=== PATIENT | female | born 1930 | race Caucasian/White ===

== ENCOUNTER → 2017-01-29 | Outpatient (CLI) | payer MEDICARE, OTHER | END | disposition home or self-care (01) | LOC: GMAJ 15:10 | PROVIDERS: ATTEND Family Medicine | DX: R10.84 Generalized abdominal pain (principal) ==

== ENCOUNTER → 2017-04-12 | Outpatient (CLI) | payer MEDICARE, OTHER | END | disposition home or self-care (01) | LOC: LAB.O 12:06 | PROVIDERS: ATTEND Internal Medicine Rheumatology | DX: Z79.899 Other long term (current) drug therapy (principal); M81.0 Age-related osteoporosis without current pathological fracture; E56.8 Deficiency of other vitamins ==

== ENCOUNTER → 2017-06-05 | Outpatient (CLI) | payer MEDICARE, OTHER | END | disposition home or self-care (01) | LOC: GMAJ 10:44 | PROVIDERS: ATTEND Family Medicine | DX: Z79.899 Other long term (current) drug therapy (principal) ==

== ENCOUNTER → 2017-08-30 | Outpatient (CLI) | payer MEDICARE, OTHER ==
--- NOTE | 2017-08-31 10:18 | CT ---
Study: CT abdomen and pelvis. Indication: PERIUMBILICAL PAIN Technique: CT of the abdomen and pelvis obtained without intravenous contrast. This exam was performed according to our departmental dose-optimization program, which includes automated exposure control, adjustment of the mA and/or kV according to patient size and/or use of iterative reconstruction technique. Comparison: None. Findings: Emphysema. Coronary artery and abdominal aortic atherosclerosis. Liver, gallbladder, pancreas, spleen, adrenal glands, left kidney, bladder, uterus, and bilateral adnexa demonstrate normal unenhanced CT appearance. 13 mm hyperdense exophytic lesion lateral margin of the right kidney. Colonic diverticulosis without diverticulitis. Stomach, small bowel, and appendix unremarkable. No free fluid. No free air. No pathologically enlarged lymphadenopathy. Degenerative changes of the spine noted. Tiny fat-containing umbilical hernia without herniated bowel Impression: Tiny fat-containing periumbilical hernia without herniated bowel. Colonic diverticulosis without diverticulitis. Exophytic hyperdense right renal lesion likely a proteinaceous cyst. Renal sonogram can confirm. Atherosclerosis. Additional findings as above. Electronically signed by: Gabriele Torre MD 08/31/2017 10:17 AM CDT
== END | disposition home or self-care (01) ==
LOC: CT 09:27
PROVIDERS: ATTEND Family Medicine
DX: K42.9 Umbilical hernia without obstruction or gangrene (principal); K57.30 Diverticulosis of large intestine without perforation or abscess without bleeding

== ENCOUNTER → 2018-02-22 | Outpatient (CLI) | payer OTHER | LOC: GMAJ 13:48 | PROVIDERS: ATTEND Family Medicine | DX: N30.00 Acute cystitis without hematuria (principal); R30.0 Dysuria ==

== ENCOUNTER → 2018-08-05 | Outpatient (CLI) | payer OTHER | LOC: GMAJ 16:45 | PROVIDERS: ATTEND Family Medicine | DX: M15.0 Primary generalized (osteo)arthritis (principal); Z79.899 Other long term (current) drug therapy ==

== ENCOUNTER 2018-12-30 16:48 | Inpatient (IN) | payer OTHER ==
--- NOTE | 2018-12-30 16:50 | HP ---
SUPERVISING PHYSICIAN: Wilmar Haile M.D. CHIEF COMPLAINT: Fever. HISTORY OF PRESENT ILLNESS: Ms. Duncan is an 88 year-old female patient that presented to the clinic today complaining of fever up to a maximum of 100.6 at home. She was also noting that she was having some abdominal pain that was more on the right lower quadrant than left lower quadrant with some associated chills, vomiting times 1 and generalized leg and hip pain. In the clinic today, she was found to be mildly tender on exam to both the lower right and left quadrants. She was worked up in the clinic with concerns possibly that she was developing an Influenza-like illness from upper respiratory infection, including Influenza, however, a full BioFire and respiratory panel showed this to be negative. Urinalysis showed just some mild microhematuria. Her white count was showing a mild leukocytosis at 11,900 without a left shift. While having chest x-ray completed when she was getting off the x-ray table, she had a near syncopal episode and actually became mildly diaphoretic and nauseous with emesis. Vital signs in the clinic prior to that showed that she was normotensive with blood pressure 147/77, heart rate 90. Dr. Haile requested the patient be placed in observation tonight with concerns for possible dehydration given that she has a history of diverticulosis, that she may be having early signs of acute diverticulitis. On interview on admission, the patient noted that she had been not feeling well since this past weekend and actually was constipation over the weekend, but this morning had relief after she took a stool softener and an enema. She notes that she does have issues with constipation often having to utilize laxative and enemas to have successful bowel movements. The patient is now going to be placed in observation with concerns for dehydration and to further address the previous near syncopal episode. She was placed in observation in stable condition. PAST MEDICAL HISTORY: 1. Seasonal allergies. 2. Osteoarthritis. 3. Mild carotid artery stenosis diagnosed in 2003. 4. History of diverticulosis. 5. History of urinary incontinence secondary to urgency. 6. Chronic idiopathic constipation. PAST SURGICAL HISTORY: 1. Benign breast biopsy times 4. 2. Dilatation and curettage times 2. 3. Tonsillectomy and adenoidectomy. 4. Heart catheter that was normal in 2015. 5. Colonoscopy in 2010 per medical records showing to be with no abnormal findings. HOME MEDICATIONS: 1. Metamucil daily. 2. Calcium supplement 500 mg daily. 3. Vitamin D3 400 units daily. 4. Amitiza 24 mcg b.i.d. 5. Centrum Silver 1 daily. 6. Dhara allergy. 7. Aspirin enteric coated 81 mg daily. 8. Meloxicam 7.5 mg daily. 9. Lipitor 10 mg daily. 10. Tylenol 500 mg at bedtime. ALLERGIES: NO KNOWN DRUG ALLERGIES. FAMILY HISTORY: Father at age 78 secondary to prostate cancer. Mother at age 90 due to stroke. She has 1 brother that is . He had a history of bone cancer. She has 4 children, all adopted. SOCIAL HISTORY: The patient is a retired manager of school, elementary and high school, and currently is a rancher/woo. She has been since 2013. She has never smoked, never used tobacco. She lives in [place], [place]. REVIEW OF SYSTEMS: CONSTITUTIONAL: Subjective fever of 100.6. Negative for fatigue but positive for general malaise. HEENT: Negative for any ear pain, sore throat, nasal congestion, headaches. RESPIRATORY: Positive for recent cough. Denies any dyspnea or pleuritic chest pain. CARDIOVASCULAR: Negative for chest pains, palpitations, peripheral edema. Positive for near syncopal episode. GASTROINTESTINAL: As noted in History of Present Illness. Positive for right lower and left lower quadrant pain, constipation, mild abdominal pains. Denies any diarrhea, melena or other bowel changes. Does have history of diverticulosis. Denies any blood per rectum. MUSCULOSKELETAL: Positive for general arthralgias. No joint swelling. INTEGUMENT: Negative for any lesions, rash, moles or unexplained changes. NEUROLOGIC: Negative for ataxia, seizures, paresthesias, vision changes. Positive for questionable near syncopal episode. HEMATOLOGIC: Denies any unexplained bleeding, easy bruising. PHYSICAL EXAMINATION: VITAL SIGNS: Temperature 97.6, pulse 77, blood pressure 165/76, respirations 16, satting 99% on room air at rest. Admission weight 52.4 kg. GENERAL: On admission to the hospital, the patient appears to be in no acute distress, comfortable, mildly dehydrated but well nourished. HEENT: Tympanic membranes are partially obscured by cerumen. Oropharynx was pink with dry mucosal membranes. No lesions. NECK: Supple, non-tender. Full range of motion. CHEST: Lungs are clear to auscultation without any rhonchi, wheezing or rales. CARDIOVASCULAR: Regular rate and rhythm without appreciable murmurs, gallops, or rubs. ABDOMEN: Mildly tender on palpation in the left lower quadrant and right lower quadrant. No rebound tenderness. No guarding. No point tenderness. No peritoneal signs. Bowel sounds were active. EXTREMITIES: No clubbing, cyanosis or edema. NEUROLOGIC: She is alert and oriented times three. Cranial nerves II-XII are grossly intact. Facial features were symmetrical. Extraocular movements are within normal limits. There is no notable nystagmus. LYMPHATICS: Bilateral anterior cervical lymphadenopathy. LABORATORY: CBC in the clinic showed white count 11,900 without a left shift. Hemoglobin 14.3, hematocrit 43.4. Platelet count 191,000. Differential showed to be without a left shift. CMP was pending. Urinalysis showed clear urine, just trace lysed blood. Microscopic showed 1 to 3 red cells, otherwise within normal limits. Influenza testing in the clinic was negative for A and B by [facility]. Magnesium is pending. RADIOLOGY: Lumbar spine pending radiology review. Chest x-ray 2 view pending. Abdominal series pending. ASSESSMENT: 1. Near syncopal episode probably due to some dehydration. 2. Fever subjective, uncertain etiology, with negative Influenza testing with the patient having a history of diverticulosis. 3. Abdominal pain left lower quadrant with a past history of diverticulosis pending further workup. 4. Lumbar back pain with history of osteoarthritis. 5. Idiopathic constipation on Amitiza. PLAN: The patient will be placed in observation with concerns for dehydration resulting in a near syncopal episode. Given that she has had some left lower quadrant pain, will go ahead and do an abdominal series plain films and plan to reevaluate in the morning. If her symptoms persist, certainly will do a CT of the abdomen with contrast. Will await her full laboratory studies. Will go ahead and start her on some IV fluids initially with lactated ringers and continue maintenance fluids based off lab results. Will go ahead and do some tilt vital signs. Will anticipate her length of stay to be 1 to 2 days, possibly discharging tomorrow. If her abdominal pain persists or worsens, certainly will need to followup with a CT and based off clinical presentation with concerns for possible developing diverticulitis with a history of diverticulosis. Will review her medications and resume those as appropriate once updated and verified. She will be on DVT prophylaxis as per protocol. Until she can transition to outpatient management will continue to monitor and treat as needed. [facility][id number] [facility]
[2018-12-30] MEDS ORDERED: SODIUM CHLORIDE 0.9% (FLUSH) 10 ML SYG IV PRN (17:01)
[2018-12-30] MEDS ORDERED: LACTATED RINGERS 1,000 ML IVS PRN (17:01)
[2018-12-30] MEDS ORDERED: ACETAMINOPHEN 325 MG TAB PO PRN (17:01)
[2018-12-30] MEDS ORDERED: ONDANSETRON INJ 4 MG/2 ML VIAL IV PRN (17:01)
[2018-12-30] MEDS ORDERED: LACTATED RINGERS 1,000 ML ONE (17:30)
[2018-12-30] MEDS ORDERED: IV SET AND CAP CHANGE INJ INJ SCH (17:30)
[2018-12-30] MEDS ORDERED: MAGNESIUM SULFATE PREMIX 2GM 2 GM in PREMIX BAG 1 BAG IVPB ONE (20:17)
[2018-12-30] MEDS ORDERED: MAGNESIUM SULFATE PREMIX 2GM 50 ML IVPB ONE (21:12)
[2018-12-30] MEDS: ACETAMINOPHEN 500 MG TAB PO SCH (21:25)
[2018-12-30] MEDS ORDERED: CHLORPHENIRAMINE W/HYDROCODONE 5 ML UD PO PRN (22:48)
[2018-12-31] MEDS: KCL 40 MEQ/D5 1/2NS 1,000 ML IVS PRN ×2 (01:29→13:57)
[2018-12-31] MEDS: LUBIPROSTONE 24 MCG CAP PO SCH ×2 (06:46→17:34)
[2018-12-31] MEDS: MELOXICAM 7.5 MG TAB PO SCH (08:45)
[2018-12-31] MEDS: ASPIRIN (ENTERIC COATED) 81 MG TAB PO SCH (08:45)
[2018-12-31] MEDS ORDERED: PSYLLIUM 48.57% PO SCH (09:00)
[2018-12-31] MEDS ORDERED: CALCIUM 500 MG PO SCH (09:00)
[2018-12-31] MEDS ORDERED: NON-FORMULARY MEDICATION 1 EA MIS (Fexofenadine Hcl [Allegra Allergy] 180 MG) PO SCH (09:00)
--- NOTE | 2018-12-31 12:26 | CT ---
EXAM DESCRIPTION: Abdomen/Pelvis w/Contrast CLINICAL HISTORY: 88 years Female, LLQ pain with HX of Diverticulosis COMPARISON: CT abdomen and pelvis with contrast dated 08/30/2017. TECHNIQUE: Contiguous 3 mm axial images were obtained from the lung bases to the level of the proximal femora after the administration of intravenous and oral contrast. Sagittal and coronal reconstructions were reviewed. FINDINGS: THORAX: The imaged lower thorax demonstrates no gross abnormality. LIVER: The liver demonstrates normal size and density with no focal masses. GALLBLADDER: Grossly unremarkable. PANCREAS: Appears normal with no cystic or solid lesions. SPLEEN: Normal ADRENAL GLANDS: Normal with no nodules or masses. KIDNEYS: Both kidneys enhance symmetrically with no hydronephrosis or nephrolithiasis or perinephric fluid collections. 1.4 x 1 cm enhancing mass is noted in the upper pole of the right kidney. Inflammatory stranding is noted around the left kidney which could be secondary to pyelonephritis. STOMACH: The stomach is well-distended with no gross abnormality. SMALL BOWEL: The small bowel loops demonstrate variable degrees of distention with no abnormal dilatation or other signs to suggest bowel obstruction. LARGE BOWEL: Mild constipation. Multiple diverticula are noted throughout the colon with no acute inflammation. The appendix is not definitely visualized. No evidence of free intraperitoneal air or fluid. RETROPERITONEUM: The abdominal aorta is nonaneurysmal with moderate atherosclerosis. The inferior vena cava is normal in size and caliber. No abnormally enlarged retroperitoneal lymph nodes are identified. URINARY BLADDER:The urinary bladder is well-distended with no gross abnormality. The uterus and ovaries appear normal. ADDITIONAL FINDINGS: None. BONES: Mild degenerative changes are identified in the visualized bones.No evidence of osteophytic or osteoblastic lesions. IMPRESSION: 1. 1.4 x 1 cm enhancing mass is noted in the upper pole of the right kidney. This appears unchanged compared to prior CT dated 08/30/2017. 2. Questionable pyelonephritis of the left kidney. Clinical correlation with urinalysis is recommended. 3. Colonic diverticulosis with no acute inflammation. This exam was performed according to our departmental dose-optimization program, which includes automated exposure control, adjustment of the mA and/or kV according to patient size and/or use of iterative reconstruction technique. Electronically signed by: Debbie Flowers MD 12/31/2018 12:22 PM DIRECTOR OPERATING
[2018-12-31] MEDS ORDERED: MORPHINE SULFATE INJ 10 MG/ML VIAL IV PRN (13:36)
[2018-12-31] MEDS ORDERED: SODIUM CHL 0.9% 50ML MIN-BAG+ 50 ML IVPB ONE (13:53)
[2018-12-31] MEDS ORDERED: cefTRIAXone SODIUM 1 GM VIAL ONE (13:54)
[2018-12-31] MEDS: LORATADINE 10 MG TAB PO SCH (13:54)
[2018-12-31] MEDS: cefTRIAXone SODIUM 1 GM in SODIUM CHL 0.9% 50ML MIN-BAG+ 50 ML IVPB SCH (13:57)
[2018-12-31] MEDS: CALCIUM CARBONATE-VITAMIN D 500 MG TAB PO SCH (13:57)
--- NOTE | 2018-12-31 20:30 | PN ---
DATE: 12/31/18 SUPERVISING PHYSICIAN: Wilmar Haile M.D. SUBJECTIVE: The patient continues to have left sided lower quadrant pain and some loose stools. She has been afebrile and continues to have general malaise with some nausea with meals. She feels like she is having a flare-up of her diverticulosis. OBJECTIVE: VITAL SIGNS: Temperature 98.6, pulse 72, blood pressure 146/78, respirations 20, satting 98% on room air. CHEST: Lungs were clear to auscultation. HEART: Regular rate and rhythm. ABDOMEN: Soft with some continued tenderness to the left lower quadrant and pain described as radiating up into her left flank. No rebound tenderness. No peritoneal signs. EXTREMITIES: Without any edema. NEUROLOGIC: She is alert and oriented times three. LABORATORY: CMP shows normal electrolytes, BUN 17, creatinine 0.93, calcium 7.5, magnesium is normalized at 2.2 after replacement. Liver functions showing to be within normal limits. MICROBIOLOGY: Blood cultures are negative currently. RADIOLOGY: Abdominal/pelvis CT with contrast per radiology interpretation showed a 1.4 cm x 1 cm enhancing mass noted in the upper pole of the right kidney, appears to be unchanged compared to prior CT dated August 2017. There was notable questionable pyelonephritis of the left kidney and chronic diverticulosis with no acute inflammation. ASSESSMENT: 1. Left sided pyelonephritis as noted on CT scan studies. 2. Subjective fever likely due to ongoing pyelonephritis. 3. Abdominal pain left lower quadrant with no signs of diverticulitis with CT findings consistent with left sided pyelonephritis requiring IV pain management and parenteral antibiotics. 4. Lumbar back pain with history of osteoarthritis. 5. Idiopathic constipation on Amitiza. PLAN: Given the findings on CT and the patient's continued pain levels, will go ahead and start her on some antibiotics including Rocephin once blood cultures and a repeat urinalysis and urine culture is completed. She is on IV morphine for pain control. She continues on IV fluids. Will continue to monitor the patient's clinical progression and monitor culture results, and target antibiotic therapy as needed. Hopefully be able to discharge the patient within the next 48 hours, possibly later tomorrow. Until then, continue to monitor and treat as needed. #[id number] [facility]
[2018-12-31] MEDS: ACETAMINOPHEN 500 MG TAB PO SCH (20:35)
[2019-01-01] MEDS: KCL 40 MEQ/D5 1/2NS 1,000 ML IVS PRN (01:50)
[2019-01-01] MEDS: LUBIPROSTONE 24 MCG CAP PO SCH ×3 (06:12→17:42)
[2019-01-01] MEDS: CALCIUM CARBONATE-VITAMIN D 500 MG TAB PO SCH (08:34)
[2019-01-01] MEDS: ASPIRIN (ENTERIC COATED) 81 MG TAB PO SCH (08:34)
[2019-01-01] MEDS: MELOXICAM 7.5 MG TAB PO SCH (08:34)
[2019-01-01] MEDS: CALCIUM POLYCARBOPHIL 625 MG TAB PO SCH (08:34)
[2019-01-01] MEDS: LORATADINE 10 MG TAB PO SCH (08:34)
[2019-01-01] MEDS ORDERED: SODIUM CHL 0.9% 50ML MIN-BAG+ 50 ML IVPB ONE (13:37)
[2019-01-01] MEDS ORDERED: cefTRIAXone SODIUM 1 GM VIAL ONE (13:38)
[2019-01-01] MEDS: cefTRIAXone SODIUM 1 GM in SODIUM CHL 0.9% 50ML MIN-BAG+ 50 ML IVPB SCH (14:00)
--- NOTE | 2019-01-01 16:49 | PN ---
DATE: 01/01/19 SUPERVISING PHYSICIAN: Wilmar Haile M.D. SUBJECTIVE: The patient is lying in bed. She has no complaints of chest pain, shortness of breath, nausea, vomiting or diarrhea. She said she still has a mild tenderness in her left lower back, but otherwise she feels much better. OBJECTIVE: VITAL SIGNS: Temperature 98, heart rate 70, blood pressure 133/70, respiratory rate 18, O2 sat 97% on room air. RESPIRATORY: Essentially clear to auscultation bilaterally. CARDIAC: Regular rate and rhythm. GASTROINTESTINAL: Abdomen is soft, nondistended, non-tender. Bowel sounds are positive. She does have mild left flank pain. NEUROLOGIC: She is awake, alert and oriented times three. LABORATORY: Preliminary blood cultures show no growth after 24 hours. Urine cultures are pending. All other labs and films have been reviewed via the EMR. ASSESSMENT: 1. Left sided pyelonephritis as noted on CT scan studies. 2. Subjective fever most likely due to ongoing pyelonephritis. 3. Abdominal pain left lower quadrant with no signs of diverticulitis and CT findings consistent with left sided pyelonephritis. 4. Lumbar back pain with history of osteoarthritis. 5. Idiopathic constipation on Amitiza. PLAN: We will continue present supportive care, including her antibiotics which include Rocephin. We will monitor her blood cultures and urine culture. I have discontinued her IV fluids as she is taking p.o. without problems. Hopefully her cultures will be resulted by tomorrow and we can anticipate discharge in the next 1 to 2 days. Will continue to monitor closely and follow as needed. [facility][id number] [facility]
[2019-01-01] MEDS ORDERED: ATORVASTATIN 10 MG TAB PO SCH (21:00)
[2019-01-01] MEDS: ACETAMINOPHEN 500 MG TAB PO SCH (21:10)
[2019-01-02] MEDS: LUBIPROSTONE 24 MCG CAP PO SCH (06:44)
[2019-01-02] MEDS: CALCIUM CARBONATE-VITAMIN D 500 MG TAB PO SCH (08:08)
[2019-01-02] MEDS: MELOXICAM 7.5 MG TAB PO SCH (08:08)
[2019-01-02] MEDS: LORATADINE 10 MG TAB PO SCH (08:08)
[2019-01-02] MEDS: ASPIRIN (ENTERIC COATED) 81 MG TAB PO SCH (08:08)
[2019-01-02] MEDS: CALCIUM POLYCARBOPHIL 625 MG TAB PO SCH (08:08)
[2019-01-02 09:56] VITALS: BP 145/71; TEMP 97; O2SAT 97
[2019-01-02] MEDS ORDERED: levoFLOXacin 500 MG TAB PO ONE (14:03)
[2019-01-02] MEDS ORDERED: levoFLOXacin 500 MG TAB ONE (14:03)
--- NOTE | 2019-01-03 08:43 | DS ---
SUPERVISING PHYSICIAN: Wilmar Haile MD DISCHARGE DIAGNOSIS: 1. Left sided pyelonephritis as noted on CT scan studies. 2. Subjective fever most likely due to ongoing pyelonephritis. 3. Abdominal pain, left lower quadrant, with no signs or symptoms of diverticulitis and CT findings consistent with left sided pyelonephritis. 4. Dehydration with a near syncopal episode that improved with fluids. 5. Lumbar back pain with history of osteoarthritis. 6. Idiopathic constipation on Amitiza. HISTORY OF PRESENT ILLNESS: This is an 88-year-old female patient that presented to [facility] the day of admission complaining of fever up to 100.6. She had seen her primary care physician, Dr. Haile. She was having some abdominal pain that was more on the right lower quadrant, but also present in the left lower quadrant with some associated chills, vomiting times one and generalized leg and hip pain. In the clinic, she was found to be mildly tender on exam to both the lower right and left quadrants. She was worked up in the clinic with concerns possibly that she was developing an Influenza-like illness from upper respiratory infection, including Influenza, however, a full BioFire and respiratory panel showed this to be negative. Urinalysis showed just some mild microhematuria. Her white count was showing a mild leukocytosis at 11,900 without a left shift. While having chest x-ray completed when she was getting off the x-ray table, she had a near syncopal episode and actually became mildly diaphoretic and nauseous with emesis. Vital signs in the clinic prior to that showed that she was normotensive with blood pressure 147/77, heart rate 90. Dr. Haile requested the patient be placed in observation tonight with concerns for possible dehydration given that she has a history of diverticulosis and that she may be having early signs of acute diverticulitis. On interview on admission, the patient noted that she had been not feeling well since the prior weekend and actually was constipated over the weekend, but this morning had relief after she took a stool softener and an enema. She does have issues with constipation often having to utilize laxative and enemas as well as Amitiza to have successful bowel movements. The patient was placed in observation with concerns for dehydration and to further address the near syncopal episode. HOSPITAL COURSE: A CT of the abdomen and pelvis was completed the following morning and was found to have 1) A 1.4 by 1 cm enhancing mass noted in the upper pole of the right kidney. It appeared unchanged from prior CT. 2) Questionable pyelonephritis of the left kidney. Clinical correlation with urinalysis is recommended. 3) Colonic diverticulosis with no acute inflammation. She was given some fluids as well as some Rocephin. Blood cultures and urine cultures were ordered. She was on IV morphine for pain control. Her clinical picture improved over the next day or so. Her vital signs remained stable. Today, she will be discharged home in stable condition with close followup with her primary care physician, Dr. Haile. LABORATORY: WBCs remained stable at 7,500 with a stable hemoglobin and hematocrit of 12.8 and 39.4. Electrolytes were basically within normal limits during her stay with the exception of her calcium was slightly low at 7.6. Her magnesium also was low initially at 1.7 and required supplementation. It is now 2. Her preliminary blood cultures showed no growth after 48 hours. Her urine showed no growth after 36 hours. RADIOLOGY: CT results as per history of present illness. DISCHARGE PLAN: The patient will be discharged home in stable condition. She is to resume her previous diet and increase her activity as tolerated. She will be sent home on 10 days of Levaquin. She will followup with Dr. Haile, her primary care physician, at 11:00 on 01/09/19. She is to resume her previous home medications. She is to return to the hospital for followup with Dr. Haile for any problems or complications. DISCHARGE MEDICATIONS: 1. Centrum Silver. 2. Fexofenadine. 3. Aspirin 81 mg. 4. Tylenol. 5. Mobic. 6. Lipitor. 7. Vitamin D3. 8. Psyllium. 9. Amitiza. 10. Calcium. 11. Levaquin. [facility][id number] [facility]
== END 2019-01-02 14:30 | disposition home or self-care (01) | DRG 690 ==
LOC: INTOOBSV 16:48 → UNDOADMOB 16:48 → MS 16:48 → OBSVTOIN 16:48 → MS 12-31 13:31 → OBSVTOIN 12-31 13:31
PROVIDERS: ADMIT Family Medicine; ATTEND Nurse Practitioner Family
PROC: BW211ZZ Computerized Tomography (CT Scan) of Abdomen and Pelvis using Low Osmolar Contrast (ICD-10-PCS; principal; 2018-12-31)
DX: N12 Tubulo-interstitial nephritis, not specified as acute or chronic (principal); E86.0 Dehydration; M19.90 Unspecified osteoarthritis, unspecified site; M54.5 Low back pain; K59.09 Other constipation; K57.30 Diverticulosis of large intestine without perforation or abscess without bleeding; R31.29 Other microscopic hematuria; E83.42 Hypomagnesemia; J30.2 Other seasonal allergic rhinitis; N39.41 Urge incontinence; Z79.82 Long term (current) use of aspirin; Z79.1 Long term (current) use of non-steroidal anti-inflammatories (NSAID); Z79.899 Other long term (current) drug therapy

== ENCOUNTER → 2019-02-24 | Outpatient (CLI) | payer OTHER | LOC: LAB.O 15:09 | PROVIDERS: ATTEND Internal Medicine Rheumatology | DX: M15.0 Primary generalized (osteo)arthritis (principal); M81.0 Age-related osteoporosis without current pathological fracture; Z79.899 Other long term (current) drug therapy ==

== ENCOUNTER → 2019-03-12 | Outpatient (CLI) | payer OTHER | LOC: LAB.O 11:29 | PROVIDERS: ATTEND Internal Medicine Rheumatology | DX: M81.0 Age-related osteoporosis without current pathological fracture (principal); Z79.899 Other long term (current) drug therapy ==

== ENCOUNTER 2019-06-14 10:49 | Emergency (ER) | payer OTHER ==
--- NOTE | 2019-06-14 12:49 | ED.PDOC ---
History of Present Illness - General Chief Complaint: GI Problem Time Seen by Provider: 06/14/19 11:00 Source: patient Exam Limitations: no limitations - History of Present Illness Initial Comments: Patient presents complaining of rectal bleeding. She said that it occurred for the first time yesterday. There was bright red and dark blood in the toilet. She said that she has not had a BM today but when she "wiped" there were blood clots and bright blood. She says she has a history of diverticulosis but no rectal bleeding. She denies pain. No other complaints. Timing/Duration: 24 hours Severity: mild Improving Factors: nothing Worsening Factors: nothing Associated Symptoms: denies symptoms Allergies/Adverse Reactions: Allergies NO KNOWN ALLERGY Allergy (Verified 01/06/16 13:41) Home Medications: Ambulatory Orders Acetaminophen [Tylenol] 500 mg PO BEDTIME 01/06/16 Aspirin [Aspirin EC] 81 mg PO DAILY 01/06/16 Fexofenadine HCl [Dhara Allergy] 180 mg PO DAILY 01/06/16 Multiple Vitamins W/ Minerals [Centrum Silver] 1 ea PO DAILY 01/06/16 Atorvastatin Calcium [Lipitor] 10 mg PO BEDTIME 12/30/18 Calcium 500 mg PO DAILY 12/30/18 Cholecalciferol [Vitamin D3] 400 unit PO DAILY 12/30/18 Lubiprostone [Amitiza] 24 mcg PO BIDAC 12/30/18 Meloxicam [Mobic] 7.5 mg PO DAILY 12/30/18 Review of Systems - Review of Systems Constitutional: States: no symptoms reported EENTM: States: no symptoms reported Respiratory: States: no symptoms reported Cardiology: States: no symptoms reported Gastrointestinal/Abdominal: States: see HPI Genitourinary: States: no symptoms reported Musculoskeletal: States: no symptoms reported Skin: States: no symptoms reported Neurological: States: no symptoms reported Endocrine: States: no symptoms reported Hematologic/Lymphatic: States: no symptoms reported Past Medical History (General) - Patient Medical History Hx Seizures: No Hx Stroke: No Hx Asthma: Yes Hx of COPD: No Hx Congestive Heart Failure: No Hx Pacemaker: No Hx Hypertension: No Hx Diabetes: No Hx Gastroesophageal Reflux: No - diverticulitis Hx MRSA: No Surgical History: other - Vaccination History Hx Tetanus, Diphtheria Vaccination: No Hx Influenza Vaccination: Yes Hx Pneumococcal Vaccination: Yes - Social History Hx Tobacco Use: No Hx Alcohol Use: No Hx Substance Use: No Hx Physical Abuse: No Hx Emotional Abuse: No Family Medical History - Family History Father Living Status: Cause of : prostate Hx Family Asthma: Yes Hx Family Cancer: Yes - prostate Physical Exam - Physical Exam General Appearance: Alert Ears, Nose, Throat: normal ENT inspection Neck: non-tender, full range of motion, supple Respiratory: lungs clear, normal breath sounds Cardiovascular/Chest: normal peripheral pulses, regular rate, rhythm, no edema Gastrointestinal/Abdominal: normal bowel sounds, non tender, soft Back Exam: normal inspection, no CVA tenderness Extremity: normal range of motion, non-tender, normal inspection Neurologic: no motor/sensory deficits, alert, normal mood/affect, oriented x 3 Skin Exam: normal color Lymphatic: no adenopathy Progress - Progress Progress: 06/14/19 14:16 Laboratory Tests 06/14/19 06/14/19 06/14/19 12:08 12:08 12:08 WBC 9.1 RBC 3.78 L Hgb 12.1 Hct 36.3 MCV 96.1 MCH 32.0 H MCHC 33.3 RDW 13.0 Plt Count 223 MPV 7.1 L Absolute Neuts (auto) 6.60 Absolute Lymphs (auto) 1.80 Absolute Monos (auto) 0.60 Absolute Eos (auto) 0.00 Absolute Basos (auto) 0.00 Neutrophils % 72.8 Lymphocytes % 20.2 Monocytes % 6.5 Eosinophils % 0.3 L Basophils % 0.2 PT 9.9 INR 0.99 PTT (SP) 22.8 Sodium 142 Potassium 4.0 Chloride 107 Carbon Dioxide 26 Anion Gap 13.0 BUN 29 H Creatinine 1.35 H BUN/Creatinine Ratio 21.5 H Random Glucose 101 Serum Osmolality 289.1 Calcium 9.7 Total Bilirubin 0.7 AST 25 ALT 15 Alkaline Phosphatase 53 Serum Total Protein 6.5 Albumin 4.0 Globulin 2.5 Albumin/Globulin Ratio 1.6 Urine Color Urine Appearance Urine pH Ur Specific [place] Urine Protein Urine Glucose (UA) Urine Ketones Urine Blood Urine Nitrite Urine Bilirubin Urine Urobilinogen Ur Leukocyte Esterase Urine RBC Urine WBC Ur Epithelial Cells Urine Bacteria 06/14/19 12:27 WBC RBC Hgb Hct MCV MCH MCHC RDW Plt Count MPV Absolute Neuts (auto) Absolute Lymphs (auto) Absolute Monos (auto) Absolute Eos (auto) Absolute Basos (auto) Neutrophils % Lymphocytes % Monocytes % Eosinophils % Basophils % PT INR PTT (SP) Sodium Potassium Chloride Carbon Dioxide Anion Gap BUN Creatinine BUN/Creatinine Ratio Random Glucose Serum Osmolality Calcium Total Bilirubin AST ALT Alkaline Phosphatase Serum Total Protein Albumin Globulin Albumin/Globulin Ratio Urine Color Yellow Urine Appearance Clear Urine pH 7.0 Ur Specific [place] 1.015 Urine Protein Negative Urine Glucose (UA) Negative Urine Ketones Negative Urine Blood Negative Urine Nitrite Negative Urine Bilirubin Negative Urine Urobilinogen 0.2 Ur Leukocyte Esterase Negative Urine RBC 0 Urine WBC 0 Ur Epithelial Cells 3-5 Urine Bacteria 0 Labs unremarkable. I spoke with Dr. Eugene at [facility] and it was agreed that the patient should be transferred for a GI consult and likely diagnostic and therapeutic colonoscopy. I recommended to the patient that she go by ambulance but she refused and said she wanted to go by private vehicle. The risks of going by private vehicle including bleeding, lack of trained medical personal with her, accidents, and slower transport time were explained to the patient who voiced understanding but still elected to go by private vehicle. Dr. Nicholson accepted the patient to the E.R. Departure - Departure Clinical Impression: Lower GI bleed Disposition: Transfer to Hospital Condition: Good Departure Forms: ED Discharge - Pt. Copy, Patient Portal Self Enrollment Diet: other - NPO Activity: other - as per hospitalist Referrals: Wilmar Haile MD [Primary Care Provider] - 1-2 Weeks Home Medications: Ambulatory Orders Acetaminophen [Tylenol] 500 mg PO BEDTIME 01/06/16 Aspirin [Aspirin EC] 81 mg PO DAILY 01/06/16 Fexofenadine HCl [Dhara Allergy] 180 mg PO DAILY 01/06/16 Multiple Vitamins W/ Minerals [Centrum Silver] 1 ea PO DAILY 01/06/16 Atorvastatin Calcium [Lipitor] 10 mg PO BEDTIME 12/30/18 Calcium 500 mg PO DAILY 12/30/18 Cholecalciferol [Vitamin D3] 400 unit PO DAILY 12/30/18 Lubiprostone [Amitiza] 24 mcg PO BIDAC 12/30/18 Meloxicam [Mobic] 7.5 mg PO DAILY 12/30/18 Additional Instructions: Go directly to the [facility] E.R. It is recommended that you go by ambulance because of the risk of bleeding without trained medical personnel present. Critical Care Note - Critical Care Note Total Time (mins): 35
[2019-06-14 13:01] VITALS: O2SAT 97
[2019-06-14 14:18] VITALS: BP 182/76; TEMP 97.4
== END 2019-06-14 14:15 | disposition short-term general hospital (02) ==
LOC: ER 10:49
DX: K62.5 Hemorrhage of anus and rectum (principal); J45.909 Unspecified asthma, uncomplicated; Z87.19 Personal history of other diseases of the digestive system; Z79.82 Long term (current) use of aspirin; Z79.899 Other long term (current) drug therapy

== ENCOUNTER → 2019-09-15 | Outpatient (CLI) | payer OTHER | LOC: LAB.O 09:52 | PROVIDERS: ATTEND Internal Medicine Rheumatology | DX: M15.0 Primary generalized (osteo)arthritis (principal); M81.0 Age-related osteoporosis without current pathological fracture; Z79.899 Other long term (current) drug therapy ==

== ENCOUNTER → 2019-10-23 | Outpatient (CLI) | payer OTHER ==
--- NOTE | 2019-10-27 14:27 | MAM ---
EXAM DESCRIPTION: 3D Screening BILATERAL : Digital Mammography. CLINICAL HISTORY: 88 years Female ANNUAL SCREENING . No complaints. No personal history of breast cancer. Remote family history of breast cancer. Menarche age 15. No childbirth. Postmenopausal. No HRT.. Lifetime risk of developing breast cancer (Tyrer-Cuzick model)(%): Not calculated due to age greater than 85. COMPARISON: 2-D digital screening bilateral mammography 09 October 2012. No prior reports available. TECHNIQUE: Bilateral CC and MLO projection full-field images, digital tomosynthesis mammographic technique. Bilateral digital 2-D full-field MLO images. CAD not available for tomosynthesis or 2-D images. FINDINGS: The breast parenchymal density pattern is: Heterogeneously dense breast tissue, which may obscure small masses. No skin thickening or nipple retraction. Lateral solitary coarse and microcalcifications. Bilateral vascular calcifications. Mole marker on the right breast. Groups of microcalcifications show benign character. Solitary microcalcifications are increasing bilaterally. No new focal, stellate mass or density, focal asymmetry , and no suspicious microcalcifications bilaterally. Stable mammograms compared to prior study. Taking into account, differences in mammographic technique. IMPRESSION: Benign exam. BIRAD CATEGORY: 2 BENIGN FINDINGS. RECOMMENDATIONS: FOLLOW UP: Routine digital bilateral mammographic screening, one year interval from October 2019. Written communication explaining the IMPRESSION and follow-up, will be mailed to the patient and referring health care provider. According to the [employer], yearly mammograms are recommended starting at age 40 and continuing as long as a woman is in good health. Any breast change noted on a breast self-exam should be reported promptly to the patient's healthcare provider. Breast MRI is recommended for women with an approximately 20-25% or greater lifetime risk of breast cancer, including women with a strong family history of breast or ovarian cancer and women who have been treated for Hodgkin's disease. A negative mammographic report should not delay tissue diagnosis in patients with significant clinical history or physical findings. Extremely dense breast tissue limits the sensitivity of digital mammography. Electronically signed by: Luis South MD 10/27/2019 2:26 PM [employer]
== END ==
LOC: MAMMO 10:18
PROVIDERS: ATTEND Family Medicine
DX: Z12.31 Encounter for screening mammogram for malignant neoplasm of breast (principal)

== ENCOUNTER → 2019-12-09 | Outpatient (CLI) | payer OTHER ==
--- NOTE | 2019-12-10 10:45 | MRI ---
EXAM DESCRIPTION: Lumbar Spine w/o Contrast : Magnetic Resonance Imaging. CLINICAL HISTORY: LOW BACK PAIN COMPARISON: Lumbar radiographs December 2018. TECHNIQUE: Multiplanar, multiple standard sequences, non contrast MRI, lumbar spine. FINDINGS: L5-S1: The disc is well visualized on axial T2 series 501, image 3. Disc desiccation with minimal disc space loss posterior. No bulging. Degenerative hypertrophy of the posterior flavum ligaments and facet joints (posterior elements. 1.5 x 1.0 cm synovial cyst posterior to the right facet joint. AP canal diameter 12 mm. Right side endplate reactive changes and disc spur complex encroaching on the foramen which is minimally stenotic. Possible compromise right L5 nerve. Mild to moderate narrowing of the left foramen. L4-L5: Disc desiccation with disc space preserved. Minimal anterior bulging. Right paracentral bulge 4 mm with right subarticular recess stenosis and left subarticular recess narrowing. Compromise of the descending right L5 nerve. Hypertrophic degenerated posterior elements. AP canal diameter 7 mm. Moderate to severe narrowing right foramen and mild to moderate narrowing left foramen. L3-L4: Disc desiccation with no sign disc space loss. Mild to moderate endplate reactive changes. 2 mm grade 1 anterolisthesis. Disc osteophyte complex encroaching on the left foramen with marked stenosis and compromise left L3 nerve. Posterior broad-based bulge 5 mm into the canal. Moderate degenerative hypertrophy of the posterior elements more left than right. Bilateral subarticular recess narrowing. AP canal diameter 8 mm. Mild to moderate narrowing of the right foramen. L2-L3: Disc desiccation with disc space maintained. No significant posterior bulge. Minimal degenerative hypertrophy of the posterior elements. Mild canal narrowing. Moderate to mild left foraminal narrowing and mild right foraminal narrowing. L1-L2: Disc desiccation with disc space preserved. Minimal posterior bulge. Minimal degenerative hypertrophy of the posterior elements. Mild canal narrowing. Moderate to severe left foraminal narrowing and mild to moderate right foraminal narrowing. T12-L1: Minimal disc desiccation with disc space preserved. Posterior elements unremarkable. Canal and foramina are patent. Conus terminates just above the disc space. T11-T12: Disc desiccation mild to moderate disc space loss with old inferior and superior Schmorl's nodes. Anterior disc bulge and endplate spurs. Posterior midline disc abutting the cord. Moderate canal narrowing. Mild bilateral foraminal narrowing. L1-L4 dextroscoliosis. Paravertebral soft tissues paraspinal muscle atrophy.. Distal cord normal signal and caliber. Otherwise normal marrow signal in the remaining vertebral bodies and the posterior elements. Vertebral bodies are not compressed at any level. IMPRESSION: 1. Multiple levels of spondylosis, disc desiccation and bulging, degenerative hypertrophy of the posterior flavum ligaments and facet joints, and mid lumbar dextroscoliosis. 2. Right side L5-S1 spondylosis and disc spur complex encroaching on the right foramen with stenosis and possible compromise right L5 nerve. Synovial cyst posterior to the right facet joint. 3. L4-5 disc bulge to the right of midline and atrophic changes in the right facet joint resulting in right paracentral canal stenosis, stenosis of the right subarticular recess and compromise of the descending right L5 nerve root. Moderate to severe narrowing of the right foramen with right side endplate spondylosis. Anterolisthesis. 4. L3-L4 grade 1 anterolisthesis. Disc osteophyte complex on the left encroaching on the foramen with marked stenosis and compromise left L3 nerve. Posterior broad-based disc bulge. Mild to moderate central canal stenosis with bilateral subarticular recess narrowing, and abutment of the bilateral descending L4 nerves. Details concerning other disc space levels including T11-12 are in the FINDINGS above. Electronically signed by: Luis South MD 12/10/2019 10:43 AM [facility]
== END ==
LOC: MRI 09:07
PROVIDERS: ATTEND Family Medicine
DX: M47.26 Other spondylosis with radiculopathy, lumbar region (principal); M47.27 Other spondylosis with radiculopathy, lumbosacral region; M51.34 Other intervertebral disc degeneration, thoracic region; M51.35 Other intervertebral disc degeneration, thoracolumbar region; M51.36 Other intervertebral disc degeneration, lumbar region; M51.86 Other intervertebral disc disorders, lumbar region; M48.062 Spinal stenosis, lumbar region with neurogenic claudication; M43.16 Spondylolisthesis, lumbar region; M41.86 Other forms of scoliosis, lumbar region; M24.28 Disorder of ligament, vertebrae; M25.78 Osteophyte, vertebrae; M24.852 Other specific joint derangements of left hip, not elsewhere classified; M24.851 Other specific joint derangements of right hip, not elsewhere classified

== ENCOUNTER → 2020-05-11 | Outpatient (CLI) | payer OTHER | LOC: LAB.O 10:00 | PROVIDERS: ATTEND Internal Medicine Rheumatology | DX: Z79.899 Other long term (current) drug therapy (principal); M81.0 Age-related osteoporosis without current pathological fracture ==

== ENCOUNTER 2020-07-12 11:30 | Inpatient (IN) | payer OTHER ==
[2020-07-12] MEDS ORDERED: SODIUM CHLORIDE 0.9% (FLUSH) 10 ML SYG IV PRN (12:09)
[2020-07-12] MEDS ORDERED: ONDANSETRON INJ 4 MG/2 ML VIAL IV PRN (12:09)
[2020-07-12] MEDS ORDERED: ACETAMINOPHEN SUPPOSITORY 650 MG PR PRN (12:09)
[2020-07-12] MEDS ORDERED: DEX 5% W/NACL 0.45% 1000ML 1,000 ML IVS PRN (12:12)
[2020-07-12] MEDS ORDERED: PANTOPRAZOLE SODIUM IV 40 MG VIAL IV ONE (12:14)
[2020-07-12] MEDS ORDERED: IV SET AND CAP CHANGE INJ INJ SCH (12:30)
[2020-07-12] MEDS: metroNIDAZOLE IV PREMIX 500MG 500 MG in PREMIX BAG 1 BAG IVPB SCH ×2 (13:01→20:58)
[2020-07-12] MEDS ORDERED: levoFLOXacin 500MG IV 500 MG in PREMIX BAG 1 BAG IVPB SCH (13:30)
[2020-07-12] MEDS ORDERED: SODIUM CHLORIDE 0.9% 50 ML VIAL INJ ONE (14:11)
[2020-07-12] MEDS ORDERED: DEXAMETHASONE INJ 10 MG/ML VIAL IV ONE (14:11)
[2020-07-12] MEDS ORDERED: LIDOCAINE 1% 10 ML VIAL INJ ONE (14:11)
[2020-07-12] MEDS ORDERED: MAGNESIUM SULFATE INJ 1 GM/2 ML VIAL IVPB ONE (14:11)
[2020-07-12] MEDS ORDERED: PROPOFOL 200 MG/20 ML VIAL IV ONE (14:11)
--- NOTE | 2020-07-12 14:55 | CT ---
EXAM DESCRIPTION: CT abdomen and pelvis without contrast CLINICAL HISTORY: Diverticulitis. Abdominal pain COMPARISON: 12/31/2018 TECHNIQUE: Spiral CT with multiplanar reformatted images. This exam was performed according to our departmental dose-optimization program, which includes automated exposure control, adjustment of the mA and/or kV according to patient size and/or use of iterative reconstruction technique. FINDINGS: Pancolonic diverticulosis. No surrounding inflammation to diagnose diverticulitis Small exophytic mass arising from the upper lateral right kidney appears smaller than on the previous study currently about 8 mm greatest measurable dimension anteroposterior previous 12 mm. Atrophic left kidney with renal parenchymal thinning and volume loss. No renal stone disease, hydronephrosis or nephrolithiasis No abnormality of the liver or gallbladder. No biliary duct dilation. No abnormality of the spleen, pancreas or adrenals No mass lesion or inflammatory process in the stomach or small intestine. No pelvic soft tissue mass, adenopathy or free fluid. Normal pelvic viscera Atherosclerotic aorta. No aneurysm Multilevel degenerative change in the spine. IMPRESSION: Pancolonic diverticulosis without diverticulitis Electronically signed by: King Tony MD 07/12/2020 2:53 PM CDT
[2020-07-12] MEDS ORDERED: DEX 5% W/NACL 0.45% 1000ML 1,000 ML IVS ONE (19:24)
[2020-07-12] MEDS ORDERED: PANTOPRAZOLE SODIUM IV 40 MG VIAL ONE (19:24)
[2020-07-12] MEDS ORDERED: SODIUM CHL 0.9% 100ML MINI-BAG 100 ML IVPB ONE (19:50)
[2020-07-12] MEDS ORDERED: CEFEPIME 2 GM VIAL ONE (19:50)
[2020-07-12] MEDS ORDERED: CEFEPIME 2 GM in SODIUM CHL 0.9% 100ML MINI-BAG 100 ML IVPB SCH (20:00)
[2020-07-12] MEDS ORDERED: SODIUM CHLORIDE 0.9% (FLUSH) 10 ML SYG IV SCH (21:00)
[2020-07-12] MEDS ORDERED: ACETAMINOPHEN 325 MG TAB PO ONE (21:49)
[2020-07-12] MEDS ORDERED: diphenhydrAMINE HCL 50 MG/ML VIAL IV ONE (21:49)
[2020-07-12] MEDS ORDERED: SODIUM CHLORIDE 0.9% 500ML 500 ML IVS SCH (22:00)
[2020-07-12] MEDS ORDERED: ACETAMINOPHEN 325 MG TAB ONE (23:29)
[2020-07-12] MEDS ORDERED: diphenhydrAMINE HCL 50 MG/ML VIAL ONE (23:29)
[2020-07-12] MEDS ORDERED: SODIUM CHLORIDE 0.9% 500ML 500 ML ONE (23:30)
[2020-07-13 02:34] VITALS: BP 133/70; TEMP 98.4; O2SAT 93
[2020-07-13] MEDS ORDERED: PANTOPRAZOLE SODIUM IV 40 MG VIAL IV SCH (06:30)
--- NOTE | 2020-07-13 08:49 | SSS ---
SUPERVISING PHYSICIAN: Rich Alas MD DISCHARGE DIAGNOSIS: 1. Acute gastrointestinal bleed. 2. Diverticular disease. 3. Osteoarthritis. 4. Carotid artery stenosis. HISTORY OF PRESENT ILLNESS: This is an 89-year-old female patient who has a significant history of diverticular disease. About a year ago, she had a GI bleed due to her diverticular disease and was actually sent from our Emergency Room to [place] where she was scoped. She has had no problems since that time. She saw her primary care physician today, Dr. Wilmar Haile, and told him that she had had a bowel movement with some manasa red blood in it. He did an H&H on her and her hemoglobin was 10.6. She did not want to go to the hospital, but he talked her into being admitted at least for observation and she was admitted to the hospital for acute GI bleed and possible diverticulitis. Her initial vital signs showed a temperature of 97.8 with heart rate 75, blood pressure 128/74, respiratory rate 16, O2 saturation 97% on room air. Her lab studies here showed WBC 10,800, hemoglobin 10.4, hematocrit 30.9. She had a left shift on her differential. Electrolytes are basically within normal limits. BUN 34, creatinine 1.47. Her baseline creatinine is about 1.4. Calcium slightly low at 8.3. Urinalysis was unremarkable. Blood cultures were drawn. CT of the abdomen and pelvis was done and showed pancolonic diverticulosis without diverticulitis. She had been started on some Flagyl and come cefepime as well as put on bowel rest with fluids. Serial H&Hs were ordered. Four hours after her admission, her hemoglobin dropped to 9.4 and then four hours after that, her hemoglobin dropped to 8.6. She continued to have bloody bowel movements. After speaking to Dr. Haile as well as the patient's daughter and the patient, it was decided that she would be transferred to [facility] in [place]. The facility was contacted and they have accepted the patient. PAST MEDICAL HISTORY: 1. Seasonal allergies. 2. Osteoarthritis. 3. Mild carotid artery stenosis. 4. History of diverticulosis and diverticulitis. 5. History of urinary incontinence secondary to urgency. 6. Chronic idiopathic constipation. PAST SURGICAL HISTORY: 1. Benign breast biopsy x2. 2. Dilation and curettage x2. 3. Tonsillectomy and adenoidectomy. 4. Cardiac catheterization. 5. Colonoscopy in 2011 and 2019. OUTPATIENT MEDICATIONS: 1. Acetaminophen. 2. Allergy eyedrops. 3. Amlodipine. 4. Atorvastatin. 5. Calcium. 6. Vitamin D3. 7. Fexofenadine. 8. Amitiza. 9. Meloxicam. 10. Multivitamins. 11. Psyllium. ALLERGIES: ASPIRIN, LEVAQUIN, IODINE. FAMILY HISTORY: Positive for prostate cancer, cerebrovascular accident and bone cancer. SOCIAL HISTORY: She is a retired teacher. She denies any tobacco, ETOH or illicit drug use. She has four children and she has been since 2014. REVIEW OF SYSTEMS: GENERAL: Positive for fatigue. Negative for fever or weight changes. HEENT: Negative for sinus symptoms, ear pain, vision changes or sore throat. RESPIRATORY: Negative for wheezing, coughing or shortness of breath. CARDIAC: Negative for chest pain, palpitations or tachycardia. GASTROINTESTINAL: Positive for bright red bloody stools as well as abdominal pain with some mild nausea. Negative for vomiting. GENITOURINARY: Negative for hematuria, dysuria or polyuria. MUSCULOSKELETAL: Negative for arthralgias, myalgias. SKIN: Negative for lesions or rashes. NEUROLOGIC: Negative for headache, weakness or seizures. PHYSICAL EXAMINATION: VITAL SIGNS: Temperature 98.5, heart rate 71, blood pressure 110/64, respiratory rate 18, O2 saturation 95% on room air. GENERAL: This is an 89-year-old female patient lying in her hospital bed. She is in no acute distress. HEENT: Normocephalic, atraumatic. Pupils are equal and reactive. Oropharynx is clear. NECK: Supple without mass. RESPIRATORY: Essentially clear to auscultation bilaterally. CHEST: There is equal rise and fall of the chest with inspiration and expiration. CARDIOVASCULAR: Regular rate and rhythm. GASTROINTESTINAL: Abdomen is diffusely tender, especially on the left side. There is no rebound tenderness or guarding. Bowel sounds are positive. EXTREMITIES: No cyanosis, clubbing or edema. NEUROLOGIC: Awake, alert and oriented times three. Cranial nerves II-XII are grossly intact as tested. LABORATORY: Labs and films are as per history of present illness. DISCHARGE PLAN: The patient will be discharged to [facility]. The accepting physician is Dr. Quesada. Her family has been informed that she will be transferred in stable condition. She did receive on unit of blood that was started at the hospital and will be continued en route. A copy of all her labs and reports have been sent with her to [facility]. When she gets out of the hospital, she is to followup with Dr. Haile within one to two weeks. She is to contact Dr. Haile for any problems or complications. DISCHARGE MEDICATIONS: 1. Metronidazole. 2. Cefepime. 3. Fexofenadine. 4. Allergy eyedrops. 5. Amitiza. 6. Amlodipine. 7. Calcium. 8. Multivitamins with minerals. 9. Atorvastatin. 10. Psyllium. 11. Acetaminophen. 12. Vitamin D3. #[id number] [facility]
== END 2020-07-13 02:46 | disposition short-term general hospital (02) | DRG 378 ==
LOC: MS 11:30
PROVIDERS: ADMIT Nurse Practitioner Acute Care; ATTEND Nurse Practitioner Acute Care
DX: K57.33 Diverticulitis of large intestine without perforation or abscess with bleeding (principal); D62 Acute posthemorrhagic anemia; M19.90 Unspecified osteoarthritis, unspecified site; I65.29 Occlusion and stenosis of unspecified carotid artery; J30.2 Other seasonal allergic rhinitis; N39.41 Urge incontinence; K59.04 Chronic idiopathic constipation; Z79.1 Long term (current) use of non-steroidal anti-inflammatories (NSAID); Z88.1 Allergy status to other antibiotic agents; Z88.6 Allergy status to analgesic agent; Z91.048 Other nonmedicinal substance allergy status; Z79.899 Other long term (current) drug therapy

== ENCOUNTER → 2020-10-26 | Outpatient (CLI) | payer OTHER ==
--- NOTE | 2020-10-27 20:26 | MAM ---
EXAM DESCRIPTION: 3D Screening BILATERAL : Digital Mammography. CLINICAL HISTORY: 89 years Female screening . No complaints. Remote family history of breast cancer. Remote family history of ovarian cancer. Menarche age 15.. No Childbirth. Menopause age 58. Bilateral cyst aspiration and breast biopsy benign. Lifetime risk of developing breast cancer (Tyrer-Cuzick model)(%): Not calculated due to patient age over 85. COMPARISON: Bilateral screening digital breast tomosynthesis October 2019 TECHNIQUE: Bilateral CC and MLO projection full-field images, digital tomosynthesis mammographic technique. Bilateral digital 2-D full-field MLO images. CAD available for 2-D images. Limited compression on the MLO images due to patient tenderness. FINDINGS: The breast parenchymal density pattern is: Heterogeneously dense breast tissue, which may obscure small masses. Dense tissues involve a larger volume on the right. Solitary microcalcifications. Coarse calcifications. These are associated with dense fibroglandular tissues. Vascular calcifications. Axillary nodes. No skin thickening or nipple retraction No new focal, stellate mass or density, focal asymmetry , and no suspicious microcalcifications bilaterally. Stable mammograms compared to prior study. IMPRESSION: Benign exam. BIRAD CATEGORY: 2 BENIGN FINDINGS. RECOMMENDATIONS: FOLLOW UP: Routine digital bilateral mammographic screening, one year interval from October 2020. Written communication explaining the IMPRESSION and follow-up, will be mailed to the patient and referring health care provider. According to the [employer], yearly mammograms are recommended starting at age 40 and continuing as long as a woman is in good health. Any breast change noted on a breast self-exam should be reported promptly to the patient's healthcare provider. Breast MRI is recommended for women with an approximately 20-25% or greater lifetime risk of breast cancer, including women with a strong family history of breast or ovarian cancer and women who have been treated for Hodgkin's disease. A negative mammographic report should not delay tissue diagnosis in patients with significant clinical history or physical findings. Extremely dense breast tissue limits the sensitivity of digital mammography. Electronically signed by: Luis South MD 10/27/2020 8:24 PM [facility]
== END ==
LOC: MAMMO 13:32
PROVIDERS: ATTEND Family Medicine
DX: Z12.31 Encounter for screening mammogram for malignant neoplasm of breast (principal)

== ENCOUNTER → 2020-11-10 | Outpatient (CLI) | payer OTHER | LOC: LAB.O 10:47 | PROVIDERS: ATTEND Internal Medicine Rheumatology | DX: Z79.899 Other long term (current) drug therapy (principal); M81.0 Age-related osteoporosis without current pathological fracture; D64.89 Other specified anemias; E56.8 Deficiency of other vitamins ==